=== PATIENT | female | born 1970 | race Two or more races ===

== ENCOUNTER → 2024-09-23 | Outpatient (CLI) | payer MEDICAID, SELFPAY ==
--- NOTE | 2024-09-23 10:00 | XR_ITS ---
Examination: Screening digital mammography, bilateral Computer aided detection 3-D breast Tomosynthesis, bilateral Date and time of exam: September 23, 2024 at 0951 hours Compared to mammograms dating to May 03, 2016 Indication: Screening Technique: Nonmagnified MLO, CC views of the breasts to been obtained, reconstructed from 3-D Tomosynthesis images. R2 computer aided detection program utilized for evaluation of suspicious masses and/or abnormal calcifications. 3-D Tomosynthesis images obtained. Findings: Scattered areas of fibroglandular density 5 mm nodule retroareolar region left breast partially circumscribed Benign calcifications Impression: BI-RADS Category 0: Incomplete: Need additional imaging evaluation 5 mm nodule retroareolar region left breast, recommend follow-up spot tomographic views retroareolar region left breast left breast sonography to complete the workup
== END | disposition home or self-care (01) ==
DX: Z12.31 Encounter for screening mammogram for malignant neoplasm of breast (principal); R92.8 Other abnormal and inconclusive findings on diagnostic imaging of breast; N63.42 Unspecified lump in left breast, subareolar
CPT/HCPCS: 77063; 77067

== ENCOUNTER → 2024-12-31 | Outpatient (CLI) | payer MEDICAID, SELFPAY ==
--- NOTE | 2024-12-31 14:00 | XR_ITS ---
Examination: Breast ultrasound, unilateral, left Date and time of exam: December 31, 2024 1414 hours INDICATIONS: Mammogram September 23, 2024 5 mm nodule retroareolar region left breast Technique: Real-time garcia scale ultrasonographic imaging performed left breast including all 4 quadrants as well as nipple retroareolar and axillary region. Findings: 3:00 nodule circumscribed 5 x 5 mm 3:00 nodule circumscribed 8 x 7 mm 3:00 cyst 5 x 3 mm IMPRESSION: BI-RADS Category 3: Probably benign findings One additional 6 month left breast sonogram follow-up is needed to document stability of solid nodules described above
--- NOTE | 2024-12-31 15:15 | XR_ITS ---
Examination: Diagnostic digital mammography, unilateral, left Computer aided detection 3-D breast Tomosynthesis, unilateral Date and time of exam: December 31, 2024 1433 hours INDICATIONS: Mammogram September 23, 2024 5 mm nodule retroareolar region left breast Technique: Nonmagnified MLO, CC views of the left breast have been obtained, reconstructed from 3-D Tomosynthesis images. R2 computer aided detection program utilized for evaluation of suspicious masses and/or abnormal calcifications. 3-D Tomosynthesis images obtained. Findings: Scattered areas of fibroglandular density. Focal 5 mm asymmetry remains retroareolar region left breast Impression: BI-RADS category 3: Probably benign findings One additional 6 month left mammogram follow-up is needed to document stability of focal asymmetry retroareolar region left breast
== END | disposition home or self-care (01) ==
PROVIDERS: PCP Physician Assistant Medical; Referring Provider Physician Assistant Medical; Visit Provider Physician Assistant Medical
DX: R92.332 Mammographic heterogeneous density, left breast (principal); N64.89 Other specified disorders of breast; N63.25 Unspecified lump in the left breast, overlapping quadrants
CPT/HCPCS: 76641; 77061; 77065; G0279

== ENCOUNTER → 2025-07-03 | Outpatient (CLI) | payer MEDICAID, SELFPAY ==
--- NOTE | 2025-07-03 08:00 | XR_ITS ---
Examination: Breast ultrasound, unilateral, left complete Date and time of exam: July 03, 2025, 0813 hours INDICATIONS: Mammogram December 31, 2024 5 mm focal asymmetry retroareolar region left breast, left breast sonogram December 31, 2024 3:00 nodule 5 x 5 mm, 3:00 nodule 8 x 7 mm Technique: Real-time garcia scale ultrasonographic imaging performed left breast including all 4 quadrants as well as nipple retroareolar and axillary region. Findings: 3:00 nodule circumscribed 3 x 2 mm 3:00 cyst 4 x 3 mm IMPRESSION: BI-RADS Category 2: Benign findings
--- NOTE | 2025-07-03 08:30 | XR_ITS ---
Examination: Diagnostic digital mammography, unilateral, left Computer aided detection 3-D breast Tomosynthesis, unilateral Date and time of exam: 07/03/2025, 7:52 a.m. Comparisons: 2016 through December 2024 Indications: Follow-up evaluation of probably benign left retroareolar abnormality Technique: Nonmagnified MLO, CC views of the left breast have been obtained, reconstructed from 3-D Tomosynthesis images. R2 computer aided detection program utilized for evaluation of suspicious masses and/or abnormal calcifications. 3-D Tomosynthesis images obtained. Technologist: Findings: There are scattered areas of fibroglandular density. No evidence of abnormal masses or suspicious calcifications. Impression: BI-RADS category 1: Negative findings (within normal) Recommend 1 year follow-up mammogram
== END | disposition home or self-care (01) ==
LOC: CDIM 07:44
PROVIDERS: Referring Provider Physician Assistant Medical; Visit Provider Physician Assistant Medical
DX: R92.312 Mammographic fatty tissue density, left breast (principal)
CPT/HCPCS: 76641; 77061; 77065; G0279